=== PATIENT | male | born 1980 | race American Indian/Alaskan Native ===

== ENCOUNTER 2022-01-14 09:56 | Outpatient (CLI) | payer OTHER | END 2022-01-14 09:57 | disposition home or self-care (01) | LOC: EDBD 09:56 → LABHHL 09:56 | PROVIDERS: ATTEND Surgery | DX: D17.1 Benign lipomatous neoplasm of skin and subcutaneous tissue of trunk (principal) | CPT/HCPCS: 88304; 88305 ==

== ENCOUNTER 2022-01-21 08:02 | Day surgery (SDC) | payer OTHER ==
[~2022-01-21 08:02] MED LIST: ACETAMINOPHEN 500 MG TAB PO SCH; LACTATED RINGERS 1,000 ML IV SCH; MIDAZOLAM 2 MG/2 ML INJ IV NR; ceFAZolin/Water 2 GM/20 ML 2 GM/20 ML SYRINGE IV NR
[2022-01-21] MEDS ORDERED: HYDROmorphone 1 MG/1 ML INJ IV PRN (09:23)
[2022-01-21] MEDS ORDERED: ONDANSETRON 4 MG/2 ML INJ IV PRN (09:23)
[2022-01-21] MEDS ORDERED: oxyCODONE /ACETAMINOPHEN 5-325MG TAB PO PRN (09:23)
--- NOTE | 2022-01-21 09:23 | Anesthesia Consultation ---
Anesthesia Consult and Med Hx Date of service: 01/21/22 - Airway Anesthetic Teeth Evaluation: Good ROM Head & Neck: Adequate Mental/Hyoid Distance: Adequate Mallampati Class: Class II Intubation Access Assessment: Probably Good - Pre-Operative Health Status ASA Pre-Surgery Classification: ASA2 Proposed Anesthetic Plan: General (discussed MAC vs GA. Will plan GA given large size of lipomas. ) - Pulmonary Hx Smoking: Yes (quit cig 1 month ago, daily THC) Hx Respiratory Symptoms: No - Cardiovascular System Hx Hypertension: No - Central Nervous System CVA: No - Endocrine Hx Renal Disease: No Hx Liver Disease: No Hx Insulin Dependent Diabetes: No Hx Non-Insulin Dependent Diabetes: No Hx Thyroid Disease: No - Other Systems Hx Substance Use: Yes (daily THC) - Additional Comments Anesthesia Medical History Comments: No hx anesthetic complications.
--- NOTE | 2022-01-21 09:23 | Anesthesia Day of Surgery ---
Anesthesia Day of Surgery - Day of Surgery Patient Examined: Yes Patient H&P Reviewed: Yes Patient is NPO: Yes
[2022-01-21] MEDS ORDERED: LIDOCAINE 2%/EPINEPHRINE 1:200,000 VIAL (20 ML) INFILTRATI ONE (13:37)
[2022-01-21] MEDS ORDERED: BUPIVACAINE/PF (0.25%) 2.5 MG/ML 30 ML VIAL INFILTRATI ONE ×2 (13:37→15:31)
[2022-01-21] MEDS ORDERED: LIDOCAINE MPF (2%) 20 MG/1 ML VIAL 5 ML ONE (13:57)
[2022-01-21] MEDS ORDERED: propofoL 200 MG/20 ML VIAL IV ONE (13:57)
[2022-01-21] MEDS ORDERED: HYDROmorphone 1 MG/1 ML INJ ONE (13:57)
[2022-01-21] MEDS ORDERED: MIDAZOLAM 2 MG/2 ML INJ ONE (14:08)
[2022-01-21] MEDS ORDERED: LACTATED RINGERS 1,000 ML ONE (15:03)
[2022-01-21] MEDS ORDERED: ONDANSETRON 4 MG/2 ML INJ ONE (15:03)
--- NOTE | 2022-01-21 15:14 | Short Stay Summary ---
Short Stay Documentation Date of service: 01/21/22 - History H&P: obtained from office - Allergies and Medications Current Medications: Allergies No Known Allergies Allergy (Verified 01/18/22 16:06) Home Medications Medication Instructions Recorded Confirmed Last Taken Type No Known Home Medications [No 01/18/22 01/18/22 Unknown History Reported Home Medications] Active Medications Acetaminophen (Acetaminophen 500 Mg Tab) 1,000 mg PO PREOP WILL Stop: 01/21/22 20:00 Last Admin: 01/21/22 08:50 Dose: 1,000 mg Hydromorphone HCl (Hydromorphone 1 Mg/1 Ml Inj) 0.5 mg IV Q10MIN PRN PRN Reason: Pain , Severe (7-10) Stop: 01/22/22 09:22 Cefazolin Sodium (Ancef/Sterile Water 2 Gm/20 Ml) 2 gm in 20 mls @ 80 mls/hr IV PREOP NR; Protocol Stop: 01/21/22 20:00 Lactated Ringer's (Lactated Ringers) 1,000 mls @ 100 mls/hr IV DIRECT WILL Stop: 01/21/22 23:59 Last Admin: 01/21/22 08:50 Dose: 100 mls/hr Midazolam HCl (Midazolam 2 Mg/2 Ml Inj) 2 mg IV PREOP NR Stop: 01/21/22 20:00 Ondansetron HCl (Ondansetron 4 Mg/2 Ml Inj) 4 mg IV ONCE PRN PRN Reason: Nausea And Vomiting Oxycodone/Acetaminophen (Oxycodone /Acetaminophen 5-325mg Tab) 1 tab PO ONCE PRN PRN Reason: Pain, Moderate (4-6) - Brief post op/procedure progress note Date of procedure: 01/21/22 Pre-op diagnosis: 12 cm lipoma of upper back and 10 cm lipoma of left flank Post-op diagnosis: same Anesthesia: GETA Surgeon: CHRISTINE TIPTON Estimated blood loss: minimal Pathology: list (12 cm lipoma of back in 10 cm lipoma of left flank) - Disposition Condition at discharge: Good Disposition: 01 HOME / SELF CARE / HOMELESS Short Stay Discharge Plan Diet: regular Wound: open to air Follow up with: PRIMARY CAREMD [Primary Care Provider] - 7 Days CHRISTINE TIPTON MD [Staff Physician] - 7 Days Prescriptions: HYDROcodone/APAP 5-325 [[place]roy 5/325] 1 each PO Q6HR PRN #10 tablet PRN Reason: Pain
--- NOTE | 2022-01-21 15:18 | Operative Report ---
Operative Report Operative Report: Date of procedure: 01/21/2022 Preop diagnosis: 10 cm lipoma of left flank and 12 cm lipoma of back Postop diagnosis: Same Procedure: Excision of lipoma of left flank and of the back Surgeon: Dr. Garcia Managing Editor: Dr. NEWTON Anesthesia: General LMA Estimated blood loss: 30 cc Specimen: 12 cm lipoma of the back and 10 cm lipoma of left flank Findings: This is a 41-year-old -[place] gentleman with complaints of enlarging lipomas of the back and left flank. Both areas a core biopsied in the office and returned benign lipomatous tissue. In the OR under LMA general anesthesia timeout she completed 10 consents on the chart. Both sites were prepped with ChloraPrep and draped in a sterile fashion. The left flank lipoma was approached first it is infiltrated with quarter percent Marcaine and 1% lidocaine with epinephrine. The incision is made with a #10 scalpel. Dissection is continued with electrocautery and blunt dissection the entire lipoma is excised. Subcutaneous tissues irrigated with saline. Wound is closed in layers with 2-0 Vicryl to the deep subcutaneous tissue. Skin is closed with 4-0 Monocryl and Dermabond. The back is then approached. It is infiltrated again with local anesthetic. A #10 scalpel was then used to make the incision. Blunt dissection electrocautery was used to complete the dissection completely removing the lipoma. The wound is then closed in layers with 2-0 Vicryl to the subcutaneous and deep subcutaneous tissue. Skin is closed with a 4-0 Monocryl and Dermabond. Patient tolerated seizure well.
[2022-01-21] MEDS ORDERED: LIDOCAINE 2%/EPINEPHRINE 1:100,000 VIAL (20 ML) INFILTRATI ONE (15:32)
--- NOTE | 2022-01-21 16:35 | Post Anesthesia Evaluation ---
- Post Anesthesia Evaluation Patient Participated: Yes Airway Patent: Yes Stable Respiratory Function: Yes Nausea/Vomiting: No Temp > 96.8F: Yes Pain Manageable: Yes Adequeate Hydration: Yes Anesthesia Complications: No
[2022-01-21 18:25] VITALS: BP 131/76
== END 2022-01-21 16:15 | disposition home or self-care (01) ==
LOC: OR 08:02
PROVIDERS: ATTEND Surgery
DX: D17.1 Benign lipomatous neoplasm of skin and subcutaneous tissue of trunk (principal); Z87.891 Personal history of nicotine dependence; Z79.899 Other long term (current) drug therapy; Z98.890 Other specified postprocedural states
CPT/HCPCS: 21931; 88305; J0690; J1170; J2250; J2405; J2704; J3490; J7120